=== PATIENT | male | born 1975 | race American Indian/Alaskan Native ===

== ENCOUNTER 2022-01-13 19:17 | Emergency (ER) | payer SELFPAY ==
[~2022-01-13 19:17] MED LIST: CALCIUM CHLORIDE 1,000 MG/10 ML SYRINGE IV ONE; DEXTROSE 50% IN WATER (25GM) 50 ML SYRINGE IV ONE; EPINEPHrine 1 MG/10 ML SYRINGE ONE; SODIUM BICARB 8.4% 50 MEQ/50 ML SYRINGE IV ONE
--- NOTE | 2022-01-13 19:36 | Emergency Department Report ---
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 , pt had SOB for few days got worse today , went to fire station his o2 was low so they called EMS and brought here , he arrested en route here , -: Sudden, minutes(s) Associated Symptoms: denies: denies other symptoms, confusion, chest pain ED Review of Systems ROS: Stated complaint: CARDIAC ARREST Other details as noted in HPI Comment: Unobtainable due to pts medical conditions ED Past Medical Hx - Past Medical History Previous Medical History?: No ED Physical Exam - General Limitations: Other (unresponsive ) General appearance: other (unresponsive , cyanosed ) - Head Head exam: Present: atraumatic - Eye Eye exam: Present: other (non reactive ) - ENT ENT exam: Present: mucous membranes dry - Respiratory Respiratory exam: Present: other (no sponta breath ) - Cardiovascular Cardiovascular Exam: Present: other (no sponta pulse ) - GI/Abdominal GI/Abdominal exam: Present: soft - Expanded Neurological Exam Expanded Best Eye Response ([place]): (1) no response Best Motor Response ([place]): (1) no motor response Best Verbal Response ([place]): (1) no verbal response [place] Total: 3 - Skin Skin exam: Present: dry - Intubation Time Out Performed: No Laryngoscope: fiberoptic video scope Size: 3 Assist Device Used: fiberoptic device ET Tube Size: 7.5 Tube Secured Depth (cm): 24 Tube Secured Location: lips Tube Placement Confirmation: visualized tube passing t, equal breath sounds bilat, no breath sounds over epi, confirmation by capnometr Patient Tolerated Procedure: no complications Intubation Complications: none - IO Right Humerus Consent Obtained: emergent situation Time Out Performed: Yes IO Instrument Used to Penetrate the Cortex: standard IO needle Patient Tolerated Procedure: no complications Complications: none ED Medical Decision Making - Medical Decision Making intubated on arrival , IO placed in left tibia then right shoulder, 5 cycles of epi and bicarb and calicum PEA the whole time, pronounced at 1933 Critical care attestation.: If time is entered above; I have spent that time in minutes in the direct care of this critically ill patient, excluding procedure time. ED Disposition Clinical Impression: Cardiac arrest Disposition: 20 Is pt being admited?: No Does the pt Need Aspirin: No Condition: Undetermined
== END 2022-01-14 04:05 ==
LOC: ED 19:17
DX: I46.9 Cardiac arrest, cause unspecified (principal)
CPT/HCPCS: 31500; 36680; 82962; 99285; J0171; J3490